=== PATIENT | female | born 1960 | race Caucasian/White ===

== ENCOUNTER 2016-08-10 20:25 | Emergency (ER) | payer BC ==
[2016-08-10 20:35] VITALS: BP 89/36
--- NOTE | 2016-08-10 20:46 | EDM.PDOC ---
{null, ED HPI GENERAL MEDICAL PROBLEM - General Chief Complaint: General Stated Complaint: NUMBNESS IN LEGS/CHEST PAIN Time Seen by Provider: 08/10/16 20:43 Source of Information: Reports: Patient History Limitations: Reports: No Limitations - History of Present Illness INITIAL COMMENTS - FREE TEXT/NARRATIVE: 2 days h/o leg numbness with SOB, no real pain but chest discomfort. not seen anyone not better. - Related Data Allergies Allergy/AdvReac Type Severity Reaction Status Date / Time codeine Allergy Rash Verified 08/10/16 20:36 Penicillins Allergy Rash Verified 08/10/16 20:36 zolpidem tartrate Allergy Rash Verified 08/10/16 20:36 [From Ambien] Sulfa (Sulfonamide AdvReac Nausea and Verified 08/10/16 20:36 Antibiotics) Vomiting Home Meds: Home Meds Alendronate Sodium [Alendronate] 70 mg PO WEEKLY 05/17/13 [History] Esomeprazole Magnesium [Nexium] 40 mg PO BID 05/17/13 [History] LORazepam [Ativan] 1 mg PO QID PRN 05/17/13 [History] Lisinopril 10 mg PO DAILY 05/17/13 [History] Metoprolol Succinate [Toprol XL 50mg] 50 mg PO DAILY 05/17/13 [History] Simvastatin 20 mg PO BEDTIME 05/17/13 [History] Acetaminophen/Diphenhydramine [Tylenol Pm Ex-Strength Caplet] 1 tab PO BEDTIME PRN 07/15/14 [History] Albuterol [Ventolin HFA] 2 puff INH Q4H PRN 07/15/14 [History] Calcium Carbonate/Vitamin D3 [Calcium 600 + Vit D 400] 1 each PO DAILY 07/15/14 [History] DULoxetine [Cymbalta] 30 mg PO DAILY 07/15/14 [History] Dextran 70/Hypromellose [Artificial Tears] 1 drop EYEBOTH QID PRN 07/15/14 [ History] Fluticasone/Salmeterol [Advair 250-50] 1 puff INH BID 07/15/14 [History] Multivitamin [Daily Vitamin] 1 each PO DAILY 07/15/14 [History] Polyvinyl Alcohol 1 drop EYEBOTH QID PRN 07/15/14 [History] QUEtiapine Fumarate [Seroquel] 300 mg PO BEDTIME 07/15/14 [History] Tiotropium [Spiriva Handihaler] 18 mcg INH DAILY 07/15/14 [History] glyBURIDE [Glyburide] 5 mg PO DAILY 07/15/14 [History] Furosemide 20 mg PO DAILY #30 tablet 07/17/14 [Rx] Potassium Chloride [Klor-Con 10] 20 meq PO WITHBREAKFAST #30 tab.er 07/17/14 [Rx ] Past Medical History Cardiovascular History: Reports: Cardiomyopathy, Heart Failure, High Cholesterol , Hypertension Respiratory History: Reports: Asthma, COPD, Sleep Apnea, SOB Gastrointestinal History: Reports: GERD, Hiatal Hernia, Irritable Bowel Syndrome Genitourinary History: Reports: Other (See Below) Other Genitourinary History: stress incontinence Musculoskeletal History: Reports: Fibromyalgia, Osteoarthritis Neurological History: Reports: Speech Problems Psychiatric History: Reports: Bipolar Endocrine/Metabolic History: Reports: Diabetes, Type II, Obesity/BMI 30+ - Past Surgical History Cardiovascular Surgical History: Reports: AICD Social & Family History - Tobacco Use Smoking Status *Q: Former Smoker Years of Tobacco use: 37 Used Tobacco, but Quit: Yes Month Tobacco Last Used: 2011 Second Hand Smoke Exposure: No - Alcohol Use Days Per Week of Alcohol Use: 1 Number of Drinks Per Day: 1 Total Drinks Per Week: 1 - Recreational Drug Use Recreational Drug Use: No ED ROS GENERAL - Review of Systems Review Of Systems: ROS reveals no pertinent complaints other than HPI. ED EXAM, GENERAL - Physical Exam Exam: See Below Exam Limited By: No Limitations General Appearance: Alert, WD/WN, Anxious, Mild Distress, Other (upset) Ears: Hearing Grossly Normal Throat/Mouth: Normal Voice, No Airway Compromise Head: Atraumatic Neck: Non-Tender, Full Range of Motion Respiratory/Chest: No Respiratory Distress Cardiovascular: Regular Rate, Rhythm GI/Abdominal: Soft, Non-Tender Extremities: Pedal Edema, Leg Pain, Other (1+ edema, left calf tender, NV wnl.) . No: Increased Warmth, Mottled, Pallor, Redness Neurological: Alert, Oriented, Normal Cognition, Normal Gait, No Motor/Sensory Deficits Psychiatric: Flat Affect Skin Exam: Warm, Dry Lymphatic: No Adenopathy Course - Vital Signs Last Recorded V/S: Last Vital Signs Temp 37.0 C 08/10/16 20:27 Pulse 94 08/10/16 20:27 Resp 20 08/10/16 20:27 BP 89/36 L 08/10/16 20:27 Pulse Ox 96 08/10/16 20:27 - Orders/Labs/Meds Orders: Active Orders 24 hr Category Date Time Status EKG 12 Lead [EKG Documentation Completion] [RC] STAT Care 08/10/16 20:43 Active Chest w Cont [CT] Urgent Exams 08/10/16 21:27 Taken Labs: Laboratory Tests 08/10/16 08/10/16 08/10/16 Range/Units 20:55 20:55 20:55 WBC 15.2 H (5.0-10.0) 10^3/uL RBC 4.05 L (4.2-5.4) 10^6/uL Hgb 11.6 L (12.0-16.0) g/dL Hct 36.4 L (37.0-47.0) % MCV 89.9 (80-100) fL MCH 28.6 (27.0-34.0) pg MCHC 31.9 L (33.0-35.0) g/dL Plt Count 268 (150-450) 10^3/uL Neut % (Auto) 73.9 (42.2-75.2) % Lymph % (Auto) 19.8 L (20.5-50.1) % [place] % (Auto) 4.9 (2-8) % Eos % (Auto) 1.1 (1.0-3.0) % Baso % (Auto) 0.3 (0.0-1.0) % D-Dimer, Quantitative 462 H (0-400) ng/mL Sodium 136 (135-145) mmol/L Potassium 3.7 (3.6-5.0) mmol/L Chloride 91 L (101-111) mmol/L Carbon Dioxide 33.0 H (21.0-31.0) mmol/L Anion Gap 15.7 BUN 20 H (7-18) mg/dL Creatinine 1.2 (0.6-1.3) mg/dL Est Cr Clr Drug Dosing 37.60 mL/min Estimated GFR (MDRD) 46 BUN/Creatinine Ratio 16.66 Glucose 202 H (74-105) mg/dL Calcium 6.1 L (8.4-10.2) mg/dl Total Bilirubin 0.3 (0.2-1.0) mg/dL AST 30 (10-42) IU/L ALT 25 (10-60) IU/L Alkaline Phosphatase 52 (42-121) IU/L Troponin I < 0.02 (0.00-0.02) ng/ml B-Natriuretic Peptide 26 (0-100) pg/ml Total Protein 7.6 (6.7-8.2) g/dl Albumin 3.7 (3.2-5.5) g/dl Globulin 3.9 Albumin/Globulin Ratio 0.95 Meds: Medications Discontinued Medications Generic Name Dose Route Start Last Admin Trade Name Darienq PRN Reason Stop Dose Admin Sodium Chloride 1,000 mls @ 999 mls/hr 08/10/16 21:56 08/10/16 22:35 Normal Saline IV 08/10/16 22:56 999 mls/hr .BOLUS ONE Administration Iopamidol 100 ml 08/10/16 21:28 08/10/16 21:49 Isovue-370 (76%) IVPUSH 08/10/16 21:29 100 ml ONETIME ONE Administration - Re-Assessments/Exams Free Text/Narrative Re-Assessment/Exam: 08/10/16 23:06 re-exam: chatting with family no distress. results discussed with Pt. Departure - Departure Time of Disposition: 23:07 Disposition: Home, Self-Care 01 Condition: good Clinical Impression: Paresthesia of bilateral legs - Discharge Information Instructions: Paresthesia, [id number] Forms: ED Department Discharge Additional Instructions: 1) see family doctor tomorrow for ULTRASOUND OF LEGS 2) elevate legs tonight 3) recheck if there is any changes or concerns - My Orders Last 24 Hours: My Active Orders 08/10/16 20:43 EKG 12 Lead [EKG Documentation Completion] [RC] STAT 08/10/16 21:27 Chest w Cont [CT] Urgent - Assessment/Plan Last 24 Hours: My Active Orders 08/10/16 20:43 EKG 12 Lead [EKG Documentation Completion] [RC] STAT 08/10/16 21:27 Chest w Cont [CT] Urgent }
[2016-08-10 21:17] LABS: CHLORIDE,CL 91 mmol/L (101-111); SODIUM,NA 136 mmol/L (135-145)
[2016-08-10] MEDS ORDERED: Iopamidol 755 Mg/ML 100 ML Bottle IVPUSH ONE (21:28)
[2016-08-10] MEDS ORDERED: Sodium Chloride 0.9% 1,000 ML IV ONE (21:56)
--- NOTE | 2016-08-12 12:40 | EKG ---
{null, 08/10/2016 - BELÉN MARRUFO - Yvette 12-lead EKG shows atrial sensed ventricular paced rhythm. No further analysis could be done at this time. [facility] /[id number] }
== END 2016-08-10 23:20 | disposition home or self-care (01) ==
LOC: DL.ED 20:25
DX: R20.2 Paresthesia of skin (principal); I11.0 Hypertensive heart disease with heart failure; I50.9 Heart failure, unspecified; E78.00 Pure hypercholesterolemia, unspecified; J44.9 Chronic obstructive pulmonary disease, unspecified; K21.9 Gastro-esophageal reflux disease without esophagitis; M19.90 Unspecified osteoarthritis, unspecified site; E11.9 Type 2 diabetes mellitus without complications; E66.9 Obesity, unspecified; Z87.891 Personal history of nicotine dependence; F31.9 Bipolar disorder, unspecified; Z88.5 Allergy status to narcotic agent; Z88.2 Allergy status to sulfonamides; Z88.0 Allergy status to penicillin; Z88.8 Allergy status to other drugs, medicaments and biological substances; Z79.899 Other long term (current) drug therapy
CPT/HCPCS: 36415; 71260; 80053; 83880; 84484; 85025; 85379; 93005; 96365; 99284; J7030; Q9967

== ENCOUNTER 2020-08-31 20:09 | Emergency (ER) | payer BC ==
[2020-08-31 20:25] VITALS: BP 110/49; PULSE 86
[2020-08-31 21:02] LABS: ANION GAP 10.7 mEq/L (7-13)
--- NOTE | 2020-08-31 21:33 | CR ---
PROCEDURE INFORMATION: Exam: XR Chest Exam date and time: 08/31/2020 8:46 PM Age: 60 years old Clinical indication: Pain; Left-sided; Prior surgery; Surgery date: 6+ months; Surgery type: Pacemaker; Additional info: Chest pain TECHNIQUE: Imaging protocol: XR of the chest. Views: 1 view. COMPARISON: CT Chest w Cont 02/06/2017 8:52 AM FINDINGS: Tubes, catheters and devices: There is a pacemaker with dual chamber electrodes in good position. Lungs: The lungs are symmetric, well expanded and clear. Pleural spaces: There are no pleural effusions. There is no pneumothorax. Heart/Mediastinum: The heart size is stable. The mediastinal and hilar contours are normal. The pulmonary vessels are normal. Bones/joints: No acute osseous pathology is identified. IMPRESSION: No acute cardiopulmonary disease process identified.
--- NOTE | 2020-08-31 22:04 | EDM.PDOC ---
ED HPI GENERAL MEDICAL PROBLEM - General Chief Complaint: Cardiovascular Problem Stated Complaint: CHEST PAIN / HAS PACEMAKER Time Seen by Provider: 08/31/20 20:30 Source of Information: Reports: Patient, Family, RN, RN Notes Reviewed History Limitations: Reports: No Limitations - History of Present Illness INITIAL COMMENTS - FREE TEXT/NARRATIVE: Patient is a 60-year-old female who presents to ER with her with complaint of chest pain. Patient states she had a sharp pain at the site of her pacemaker that began about 6:15 PM this evening. Patient states she felt the pacemaker fire approximately every 10 to 15 minutes after that. Since arriving to the hospital, patient has had 1 episode of feeling the pacemaker fire. Patient states she was recently taken off of 3 psychiatric medications, one of them being lorazepam, and patient is unsure of the other 2. Patient states she does have a history of heart failure, is currently on spironolactone and furosemide. Patient states she was started on gabapentin 300 mg 3 times daily which was started approximately 2 weeks ago. She states she was to increase the gabapentin dosage to 600 mg tonight. Patient states history of psycho affective disorder, as well as diabetes type 2 insulin-dependent. Patient states she is due for a pacemaker check on September 17. Onset: Today, Sudden - Related Data Allergies Allergy/AdvReac Type Severity Reaction Status Date / Time codeine Allergy Rash Verified 08/31/20 20:19 Penicillins Allergy Rash Verified 08/31/20 20:19 zolpidem tartrate Allergy Rash Verified 08/31/20 20:19 [From Ambien] Sulfa (Sulfonamide AdvReac Nausea and Verified 08/31/20 20:19 Antibiotics) Vomiting Home Meds: Home Meds Alendronate Sodium [Alendronate] 70 mg PO WEEKLY 05/17/13 [History] Esomeprazole Magnesium [Nexium] 40 mg PO BID 05/17/13 [History] Lisinopril 10 mg PO DAILY 05/17/13 [History] Metoprolol Succinate [Toprol XL 50mg] 50 mg PO DAILY 05/17/13 [History] Simvastatin 20 mg PO BEDTIME 05/17/13 [History] Acetaminophen/Diphenhydramine [Tylenol Pm Ex-Strength Caplet] 1 tab PO BEDTIME PRN 07/15/14 [History] Albuterol [Ventolin HFA] 2 puff INH Q4H PRN 07/15/14 [History] Calcium Carbonate/Vitamin D3 [Calcium 600 + Vit D 400] 1 each PO DAILY 07/15/14 [History] DULoxetine [Cymbalta] 30 mg PO DAILY 07/15/14 [History] Dextran 70/Hypromellose [Artificial Tears] 1 drop EYEBOTH QID PRN 07/15/14 [History] Fluticasone/Salmeterol [Advair 250-50] 1 puff INH BID 07/15/14 [History] Multivitamin [Daily Vitamin] 1 each PO DAILY 07/15/14 [History] Polyvinyl Alcohol 1 drop EYEBOTH QID PRN 07/15/14 [History] QUEtiapine Fumarate [Seroquel] 300 mg PO BEDTIME 07/15/14 [History] Tiotropium [Spiriva Handihaler] 18 mcg INH DAILY 07/15/14 [History] glyBURIDE [Glyburide] 5 mg PO DAILY 07/15/14 [History] Potassium Chloride [Klor-Con 10] 20 meq PO WITHBREAKFAST #30 tab.er 07/17/14 [Rx ] Furosemide 80 mg PO DAILY 08/31/20 [History] Gabapentin [Neurontin] 300 mg PO TID 08/31/20 [History] OLANZapine [Olanzapine] 10 mg PO DAILY 08/31/20 [History] lamoTRIgine [LaMICtal] 150 mg PO BEDTIME 08/31/20 [History] lamoTRIgine [Lamotrigine] 50 mg PO DAILY 08/31/20 [History] Past Medical History Cardiovascular History: Reports: Cardiomyopathy, Heart Failure, High Cholesterol, Hypertension Respiratory History: Reports: Asthma, COPD, Sleep Apnea, SOB Gastrointestinal History: Reports: GERD, Hiatal Hernia, Irritable Bowel Syndrome Genitourinary History: Reports: Other (See Below) Other Genitourinary History: stress incontinence Musculoskeletal History: Reports: Fibromyalgia, Osteoarthritis Neurological History: Reports: Speech Problems Psychiatric History: Reports: Bipolar Endocrine/Metabolic History: Reports: Diabetes, Type II, Obesity/BMI 30+ - Past Surgical History Cardiovascular Surgical History: Reports: AICD, Pacer GI Surgical History: Reports: Colonoscopy, EGD Endocrine Surgical History: Reports: Thyroidectomy Social & Family History - Tobacco Use Tobacco Use Status *Q: Former Tobacco User Used Tobacco, but Quit: Yes Month/Year Tobacco Last Used: 08/2010 - Caffeine Use Caffeine Use: Reports: None - Recreational Drug Use Recreational Drug Use: No ED ROS GENERAL - Review of Systems Review Of Systems: Comprehensive ROS is negative, except as noted in HPI. ED EXAM, GENERAL - Physical Exam Exam: See Below Exam Limited By: No Limitations General Appearance: Alert, WD/WN, No Apparent Distress, Anxious Eye Exam: Bilateral Eye: EOMI, Normal Inspection Ears: Normal External Exam, Hearing Grossly Normal Nose: Normal Inspection Throat/Mouth: Normal Inspection, Normal Voice, No Airway Compromise Head: Atraumatic, Normocephalic Neck: Normal Inspection, Supple, Non-Tender, Full Range of Motion Respiratory/Chest: No Respiratory Distress, Lungs Clear, Normal Breath Sounds, No Accessory Muscle Use, Chest Non-Tender Cardiovascular: Normal Peripheral Pulses, Regular Rate, Rhythm, No Edema, No Gallop, No JVD, No Murmur, No Rub Peripheral Pulses: 2+: Radial (L), Radial (R) GI/Abdominal: Normal Bowel Sounds, Soft, Non-Tender (Female) Exam: Deferred Rectal (Female) Exam: Deferred Back Exam: Normal Inspection, Full Range of Motion, NT Extremities: Normal Inspection, Normal Range of Motion, Non-Tender, No Pedal Edema, Normal Capillary Refill, Other (+1-2 ankle/pedal edema) Neurological: Alert, Oriented, CN II-XII Intact, Normal Cognition, Normal Gait, Normal Reflexes, No Motor/Sensory Deficits Psychiatric: Normal Affect, Normal Mood, Anxious Skin Exam: Warm, Dry, Intact, Normal Color, No Rash Lymphatic: No Adenopathy #1 Interpretation EKG Date: 08/31/20 Time: 20:12 Rhythm: NSR Rate (Beats/Min): 90 [place]: Normal P-Wave: Present QRS: LBBB ST-T: Normal QT: Normal Comparison: No Change Course - Vital Signs Last Recorded V/S: Last Vital Signs Temp 97.4 F 08/31/20 20:20 Pulse 86 08/31/20 20:20 Resp 20 08/31/20 20:20 BP 110/49 L 08/31/20 20:20 Pulse Ox 95 08/31/20 20:20 - Orders/Labs/Meds Labs: Laboratory Tests 08/31/20 08/31/20 08/31/20 Range/Units 20:34 20:34 20:34 WBC 12.2 H (5.0-10.0) 10^3/uL RBC 4.54 (4.2-5.4) 10^6/uL Hgb 12.9 (12.0-16.0) g/dL Hct 39.9 (37.0-47.0) % MCV 87.9 (80-100) fL MCH 28.4 (27.0-34.0) pg MCHC 32.3 L (33.0-35.0) g/dL Plt Count 274 (150-450) 10^3/uL Neut % (Auto) 75.0 (42.2-75.2) % Lymph % (Auto) 15.8 L (20.5-50.1) % [place] % (Auto) 7.0 (2-8) % Eos % (Auto) 2.0 (1.0-3.0) % Baso % (Auto) 0.2 (0.0-1.0) % PT 10.3 (9.0-12.0) SEC INR 1.0 (0.9-1.2) Sodium 140 (136-145) mmol/L Potassium 3.7 (3.5-5.1) mmol/L Chloride 99 (98-107) mmol/L Carbon Dioxide 34 H (21-32) mmol/L Anion Gap 10.7 (7-13) mEq/L BUN 23 H (7-18) mg/dL Creatinine 1.44 H (0.55-1.02) mg/dL Est Cr Clr Drug Dosing 29.84 mL/min Estimated GFR (MDRD) 37 BUN/Creatinine Ratio 16.0 (No establ ref range) Glucose 141 H (70-99) mg/dL Calcium 7.4 L (8.5-10.1) mg/dL Magnesium 1.8 (1.8-2.4) mg/dL Total Bilirubin 0.3 (0.2-1.0) mg/dL AST 16 (15-37) U/L ALT 31 (14-59) U/L Alkaline Phosphatase 66 (46-116) U/L Troponin I High Sens 10 (<=51) pg/mL Total Protein 7.3 (6.4-8.2) g/dL Albumin 3.4 (3.4-5.0) g/dL Globulin 3.9 Albumin/Globulin Ratio 0.9 Meds: Medications Discontinued Medications Generic Name Dose Route Start Last Admin Trade Name Freq PRN Reason Stop Dose Admin Magnesium Sulfate 2 gm/ Premix 50 mls @ 25 mls/hr 08/31/20 22:52 08/31/20 23:13 IV 09/01/20 00:51 25 mls/hr ONETIME ONE Administration Potassium Chloride 40 meq 08/31/20 22:52 08/31/20 23:13 Potassium Chloride 10 Meq Tab.Er PO 08/31/20 22:53 40 meq ONETIME ONE Administration - Radiology Interpretation Free Text/Narrative:: Chest xray: PROCEDURE INFORMATION: Exam: XR Chest Exam date and time: 08/31/2020 8:46 PM Age: 60 years old Clinical indication: Pain; Left-sided; Prior surgery; Surgery date: 6+ months; Surgery type: Pacemaker; Additional info: Chest pain TECHNIQUE: Imaging protocol: XR of the chest. Views: 1 view. COMPARISON: CT Chest w Cont 02/06/2017 8:52 AM FINDINGS: Tubes, catheters and devices: There is a pacemaker with dual chamber electrodes in good position. Lungs: The lungs are symmetric, well expanded and clear. Pleural spaces: There are no pleural effusions. There is no pneumothorax. Heart/Mediastinum: The heart size is stable. The mediastinal and hilar contours are normal. The pulmonary vessels are normal. Bones/joints: No acute osseous pathology is identified. IMPRESSION: No acute cardiopulmonary disease process identified. Thank you for allowing us to participate in the care of your patient. Dictated and Authenticated by: Gayathri Duarte MD 08/31/2020 9:33 PM Central Time ([place] & [place]) See rad report - Re-Assessments/Exams Free Text/Narrative Re-Assessment/Exam: 09/01/20 04:31 No abnormality noted on the telemetry while the patient is in the ER. Discussed patient case with Dr. KEVIN who agreed to accept the patient for transfer to [facility]. Dr. Kevin requested the patient receive 40meq of Potassium orally, as well as Magnesium 2gm IV prior to transfer. Departure - Departure Time of Disposition: 23:26 Disposition: DC/Tfer to [facility] 02 Reason for Transfer *Q: Other Condition: Good Clinical Impression: Pacemaker complications Qualifiers: Encounter type: initial encounter Qualified Code(s): T82.9XXA - Unspecified complication of cardiac and vascular prosthetic device, implant and graft, initial encounter Referrals: Babatunde Fernch NP [Primary Care Provider] - Forms: ED Department Discharge, Interfacility Transfer DEX Sepsis Event Note (ED) - Evaluation Sepsis Screening Result: No Definite Risk - Focused Exam Vital Signs: Vital Signs Temp Pulse Resp BP Pulse Ox 08/31/20 20:20 97.4 F 86 20 110/49 L 95
[2020-08-31] MEDS ORDERED: Magnesium Sulfate/Water 2 GM in Premix Bag 1 BAG IV ONE (22:52)
[2020-08-31] MEDS ORDERED: Potassium Chloride 10 MEQ Tab.ER PO ONE (22:52)
== END 2020-08-31 23:20 ==
LOC: DL.ED 20:09
DX: T82.9XXA Unspecified complication of cardiac and vascular prosthetic device, implant and graft, initial encounter (principal); E78.00 Pure hypercholesterolemia, unspecified; I11.0 Hypertensive heart disease with heart failure; I50.9 Heart failure, unspecified; J44.9 Chronic obstructive pulmonary disease, unspecified; E11.9 Type 2 diabetes mellitus without complications; K21.9 Gastro-esophageal reflux disease without esophagitis; E66.9 Obesity, unspecified; Z68.41 Body mass index [BMI] 40.0-44.9, adult; Z88.5 Allergy status to narcotic agent; Z88.0 Allergy status to penicillin; Z88.8 Allergy status to other drugs, medicaments and biological substances; Z88.2 Allergy status to sulfonamides; Z79.84 Long term (current) use of oral hypoglycemic drugs; Z87.891 Personal history of nicotine dependence
CPT/HCPCS: 36415; 71045; 80053; 83735; 84484; 85025; 85610; 93005; 93010; 96374; 99284; 99285-25; A9270-GY; J3475

== ENCOUNTER 2021-01-12 07:56 | Day surgery (SDC) | payer BC ==
[~2021-01-12 07:56] MED LIST: Dexamethasone/Tobramycin 0.1-0.3% Ophth Oint 3.5 GM Tube ONE
[2021-01-12] MEDS ORDERED: Dexamethasone 4 MG/ML SDV IV ONE (07:57)
[2021-01-12] MEDS ORDERED: Midazolam 1 MG/ML 2 ML SDV IV ONE (07:57)
[2021-01-12] MEDS ORDERED: Sodium Chloride 0.9% 10 ML Syringe IV ONE (07:57)
[2021-01-12] MEDS ORDERED: Tropicamide 1% Ophth Soln 15 ML Bottle EYELF ONE (08:00)
[2021-01-12] MEDS ORDERED: Timolol Maleate 0.5% Ophth Soln 5 ML Bottle EYELF ONE (08:00)
[2021-01-12] MEDS ORDERED: Ondansetron 4 MG/2 ML SDV IVPUSH PRN (08:00)
[2021-01-12] MEDS ORDERED: Sodium Chloride 0.9% 10 ML Syringe FLUSH PRN (08:00)
[2021-01-12] MEDS ORDERED: Phenylephrine 10% Ophth Soln 5 ML Bot EYELF ONE (08:00)
[2021-01-12] MEDS ORDERED: Moxifloxacin 0.5% Ophth Soln 3 ML Bottle EYELF ONE (08:00)
[2021-01-12] MEDS ORDERED: Proparacaine 0.5% Ophth Soln 15 ML Bottle EYELF ONE (08:00)
[2021-01-12] MEDS ORDERED: Acetaminophen 325 MG Tab PO PRN (08:00)
[2021-01-12] MEDS ORDERED: Cataract Ophth Solution EYELF ONE (08:00)
[2021-01-12] MEDS ORDERED: Acetaminophen/Codeine 300-30 MG Tab PO PRN (08:00)
[2021-01-12] MEDS ORDERED: Povidone-Iodine 5% Sterile Ophth Soln 30 ML Bottle EYELF ONE ×2 (08:00→09:23)
[2021-01-12] MEDS ORDERED: Apraclonidine 0.5% Ophth Soln 5 ML Bot EYELF ONE (09:23)
[2021-01-12] MEDS ORDERED: Tetracaine HCl/PF 0.5% 4 ML Bottle EYELF ONE (09:23)
[2021-01-12] MEDS ORDERED: Dexamethasone/Tobramycin 0.1-0.3% Ophth Oint 3.5 GM Tube EYELF ONE (09:23)
[2021-01-12] MEDS ORDERED: Diclofenac Sodium 0.1% Ophth Soln 5 ML Bottle EYELF ONE (09:23)
[2021-01-12] MEDS ORDERED: Chondroitin Sulfate/Hyaluronate Sodium Ophth Inj 0.75 ML Syringe EYELF ONE (09:24)
[2021-01-12] MEDS ORDERED: Lidocaine 1% 30 ML SDV ONE (09:24)
[2021-01-12] MEDS ORDERED: Balanced Salt Solution Ophth Irrig 500 ML Bottle IOCULAR ONE (09:24)
[2021-01-12] MEDS ORDERED: Vancomycin 500 MG SDV EYELF ONE (09:25)
[2021-01-12 11:09] VITALS: BP 111/45; PULSE 83
--- NOTE | 2021-01-12 13:30 | OR ---
DATE: 01/12/2021 PREOPERATIVE DIAGNOSIS: Visually significant mixed cataract, left eye. POSTOPERATIVE DIAGNOSIS: Visually significant mixed cataract, left eye. PROCEDURE: Extracapsular cataract extraction with intraocular lens implant, left eye. ANESTHESIA: Topical/local MAC. COMPLICATIONS: None. INDICATION: Mrs. Garcia was seen in the clinic with complaints of blurred vision. Examination revealed visually significant mixed cataract. She has difficulty sewing, reading, seeing faces, difficulty with distance vision, and she is unhappy. She saw her regular store grocery merchandiser, Dr. Whittington. Dr. Whittington was not able to improve her vision and meet her visual needs with a change in glasses. I explained options, offered cataract surgery, and I explained risks including the potential for infection, retinal detachment, loss of vision, need for additional surgery amongst others. We discussed implant options. She has requested a monofocal implant. She understands that she will likely need glasses for some activities following surgery. OPERATIVE DESCRIPTION: After informed consent was obtained and the risks, benefits, and alternatives were explained, the patient was brought to the operative suite and topical anesthesia was administered. The patient was then prepped and draped in the sterile fashion and attention was placed on the left eye. A sterile lid speculum was placed into the left eye to allow operative exposure. A full-thickness paracentesis was made in the temporal portion of the operative eye. Preservative-free lidocaine 0.1 mL was injected into the anterior chamber followed by viscoelastic. A full-thickness corneal incision was then made into the anterior chamber. A bent needle cystotome was used to create a small juve in the anterior capsule. The capsulorrhexis forceps was then used to create a 360-degree curvilinear capsulorrhexis. The nucleus was then removed using a phacoemulsification handpiece and the remaining cortical material was then removed with irrigation and aspiration handpiece. Following removal of the cortical material, the capsular bag was then inspected and noted to be free of any holes or tears. Viscoelastic was then injected into the capsular bag and the intraocular lens was inserted into the capsular bag. The viscoelastic material was then removed from both the anterior and posterior chambers and from behind the IOL. The lens and capsular bag were then reinspected. The IOL was well centered and the capsular bag intact. The wound and paracentesis sites were inspected and hydrated with balanced saline solution. Both were found to be self- sealing. The intraocular pressure was assessed digitally and found to be within normal range. A good red reflex was noted at the completion of the procedure. No complications occurred during the operation. At the completion of the procedure, Maxitrol, Voltaren, and Iopidine drops were placed into the operative eye. A sterile eye shield was placed over the operative eye and the patient was transported to the postoperative recovery area having tolerated the procedure well. Postoperative instructions were given along with a postoperative appointment. The patient was advised to call with any questions or concerns. [facility] /[id number]
== END 2021-01-12 10:39 | disposition home or self-care (01) ==
LOC: DL.SDS 07:56
PROVIDERS: ATTEND Ophthalmology
DX: E11.36 Type 2 diabetes mellitus with diabetic cataract (principal); H26.8 Other specified cataract; I10 Essential (primary) hypertension; J44.9 Chronic obstructive pulmonary disease, unspecified; E03.9 Hypothyroidism, unspecified; E78.5 Hyperlipidemia, unspecified; K21.9 Gastro-esophageal reflux disease without esophagitis; E66.01 Morbid (severe) obesity due to excess calories; F32.9 Major depressive disorder, single episode, unspecified; E20.9 Hypoparathyroidism, unspecified; Z79.890 Hormone replacement therapy
CPT/HCPCS: 00142; A9270-GY; J1100; J2250; J3370; V2632

== ENCOUNTER 2021-01-19 06:51 | Day surgery (SDC) | payer BC ==
[2021-01-19] MEDS ORDERED: Dexamethasone 4 MG/ML SDV IV ONE (06:52)
[2021-01-19] MEDS ORDERED: Midazolam 1 MG/ML 2 ML SDV IV ONE (06:52)
[2021-01-19] MEDS ORDERED: Sodium Chloride 0.9% 10 ML Syringe IV ONE (06:52)
[2021-01-19] MEDS ORDERED: Sodium Chloride 0.9% 10 ML Syringe FLUSH PRN (07:00)
[2021-01-19] MEDS ORDERED: Moxifloxacin 0.5% Ophth Soln 3 ML Bottle EYERT ONE (07:00)
[2021-01-19] MEDS ORDERED: Tobramycin 0.3% Ophth Drops 5 ML Bottle EYERT ONE (07:00)
[2021-01-19] MEDS ORDERED: Phenylephrine 10% Ophth Soln 5 ML Bot EYERT PRN (07:00)
[2021-01-19] MEDS ORDERED: Acetaminophen/Codeine 300-30 MG Tab PO PRN (07:00)
[2021-01-19] MEDS ORDERED: Tropicamide 1% Ophth Soln 15 ML Bottle EYERT ONE (07:00)
[2021-01-19] MEDS ORDERED: Timolol Maleate 0.5% Ophth Soln 5 ML Bottle EYERT ONE (07:00)
[2021-01-19] MEDS ORDERED: Proparacaine 0.5% Ophth Soln 15 ML Bottle EYERT ONE (07:00)
[2021-01-19] MEDS ORDERED: Acetaminophen 325 MG Tab PO PRN (07:00)
[2021-01-19] MEDS ORDERED: Povidone-Iodine 5% Sterile Ophth Soln 30 ML Bottle EYERT ONE ×2 (07:00→08:18)
[2021-01-19] MEDS ORDERED: Ondansetron 4 MG/2 ML SDV IVPUSH PRN (07:00)
[2021-01-19] MEDS ORDERED: Cataract Ophth Solution EYERT ONE (07:30)
[2021-01-19] MEDS ORDERED: Tetracaine HCl/PF 0.5% 4 ML Bottle EYERT ONE (08:15)
[2021-01-19] MEDS ORDERED: Vancomycin 500 MG SDV EYERT ONE (08:16)
[2021-01-19] MEDS ORDERED: Apraclonidine 0.5% Ophth Soln 5 ML Bot EYERT ONE (08:16)
[2021-01-19] MEDS ORDERED: Diclofenac Sodium 0.1% Ophth Soln 5 ML Bottle EYERT ONE (08:16)
[2021-01-19] MEDS ORDERED: Dexamethasone/Tobramycin 0.1-0.3% Ophth Oint 3.5 GM Tube EYERT ONE (08:16)
[2021-01-19] MEDS ORDERED: Lidocaine 1% 30 ML SDV ONE (08:16)
[2021-01-19] MEDS ORDERED: Chondroitin Sulfate/Hyaluronate Sodium Ophth Inj 0.75 ML Syringe EYERT ONE (08:17)
[2021-01-19] MEDS ORDERED: Balanced Salt Solution Ophth Irrig 500 ML Bottle IOCULAR ONE (08:17)
[2021-01-19 10:05] VITALS: BP 118/52; PULSE 79
--- NOTE | 2021-01-19 18:24 | OR ---
DATE: 01/19/2021 PREOPERATIVE DIAGNOSIS: Visually significant mixed cataract, right eye. POSTOPERATIVE DIAGNOSIS: Visually significant mixed cataract, right eye. PROCEDURE: Extracapsular cataract extraction with intraocular lens implant, right eye. ANESTHESIA: Topical/local MAC. COMPLICATIONS: None. INDICATION: Ms. Garcia was seen in the clinic. She has difficulty seeing to read, difficulty sewing, difficulty seeing faces, difficulty seeing at distance. She saw her regular steam pipe fitter, Dr. Whittington. Dr. Whittington was not able to improve her vision and meet her visual needs with a change in glasses. We explained options, offered cataract surgery, and I explained risks including the potential for infection, retinal detachment, loss of vision, need for additional surgery, amongst others. We have discussed implant options. She has requested a monofocal implant. She does have significant preexisting corneal astigmatism and understands that she will likely need glasses for best vision following surgery. She voiced an understanding with respect to risks and wished to proceed. OPERATIVE DESCRIPTION: After informed consent was obtained and the risks, benefits, and alternatives were explained, the patient was brought to the operative suite and topical anesthesia was administered. The patient was then prepped and draped in the sterile fashion and attention was placed on the right eye. A sterile lid speculum was placed into the right eye to allow operative exposure. A full-thickness paracentesis was made in the temporal portion of the operative eye. Preservative-free lidocaine 0.1 mL was injected into the anterior chamber followed by viscoelastic. A full-thickness corneal incision was then made into the anterior chamber. A bent needle cystotome was used to create a small juve in the anterior capsule. The capsulorrhexis forceps was then used to create a 360-degree curvilinear capsulorrhexis. The nucleus was then removed using a phacoemulsification handpiece and the remaining cortical material was then removed with irrigation and aspiration handpiece. Following removal of the cortical material, the capsular bag was then inspected and noted to be free of any holes or tears. Viscoelastic was then injected into the capsular bag and the intraocular lens was inserted into the capsular bag. The viscoelastic material was then removed from both the anterior and posterior chambers and from behind the IOL. The lens and capsular bag were then reinspected. The IOL was well centered and the capsular bag intact. The wound and paracentesis sites were inspected and hydrated with balanced saline solution. Both were found to be self- sealing. The intraocular pressure was assessed digitally and found to be within normal range. A good red reflex was noted at the completion of the procedure. No complications occurred during the operation. At the completion of the procedure, Maxitrol, Voltaren, and Iopidine drops were placed into the operative eye. A sterile eye shield was placed over the operative eye and the patient was transported to the postoperative recovery area having tolerated the procedure well. Postoperative instructions were given along with a postoperative appointment. The patient was advised to call with any questions or concerns. [facility] /[id number]
== END 2021-01-19 09:31 | disposition home or self-care (01) ==
LOC: DL.SDS 06:51
PROVIDERS: ATTEND Ophthalmology
DX: E11.36 Type 2 diabetes mellitus with diabetic cataract (principal); H26.8 Other specified cataract; I10 Essential (primary) hypertension; J44.9 Chronic obstructive pulmonary disease, unspecified; E11.65 Type 2 diabetes mellitus with hyperglycemia; E78.5 Hyperlipidemia, unspecified; K21.9 Gastro-esophageal reflux disease without esophagitis; E66.01 Morbid (severe) obesity due to excess calories; F32.9 Major depressive disorder, single episode, unspecified; F41.9 Anxiety disorder, unspecified; E89.0 Postprocedural hypothyroidism; Z68.41 Body mass index [BMI] 40.0-44.9, adult
CPT/HCPCS: 00142; 82947; A9270-GY; C1780; J1100; J2250; J3370